=== PATIENT | male | born 1995 | race Caucasian/White ===

== ENCOUNTER 2017-10-16 16:27 | Emergency (ER) | payer OTHER ==
--- NOTE | 2017-10-16 18:11 | ED ---
Abdominal Pain/Male - HPI Summary HPI Summary: 21-year-old male presents to ED with complaints of watery diarrhea that has been ongoing for the past 2 days. States the diarrhea became more frequent today and has gone about 8-9 episodes. States yesterday he had 2 episodes that were more of loose stool. Describes diarrhea to be watery. Denies fever chills , chest pain and trouble breathing. Has not taken any medication for the symptoms. States she has diffuse crampy abdominal pain shortly before he has to use the bathroom. Denies any blood. Decreased urinary frequency. Denies nausea vomiting. States he when he drinks water he uses the bathroom shortly after. Has been able to keep down pretzels. Denies any past medical history. No recent travel. Did eat oysters on Sunday night. Also ate at the [employer] at school. Denies anybody having similar symptoms. No recent antibiotic use. Also complains of a headache. Denies lightheadedness or weakness. No other complaints. - History of Current Complaint Chief Complaint: EDAbdPain Stated Complaint: DIARRHEA Time Seen by Provider: 10/16/17 17:56 Hx Obtained From: Patient Onset/Duration: Sudden Onset, Lasting Days - 1-2 Timing: Intermittent Severity Initially: Mild Severity Currently: Mild Pain Intensity: 4 Pain Scale Used: 0-10 Numeric Location: Diffuse Radiates: No Aggravating Factor(s): Food - drinking water exacerbates using the bathroom Alleviating Factor(s): Nothing Associated Signs And Symptoms: Positive: Diarrhea. Negative: Fever, Constipation, Blood in Stool, Urinary Symptoms, Vomiting - Allergies/Home Medications Allergies/Adverse Reactions: Allergies Allergy/AdvReac Type Severity Reaction Status Date / Time No Known Allergies Allergy Verified 10/16/17 16:29 PMH/Surg Hx/FS Hx/Imm Hx Endocrine/Hematology History: Denies: Hx Anticoagulant Therapy, Hx Diabetes Cardiovascular History: Denies: Hx Hypertension Respiratory History: Denies: Hx Asthma - Surgical History Surgery Procedure, Year, and Place: none - Immunization History Immunizations Up to Date: Yes Infectious Disease History: No Infectious Disease History: Denies: Hx Clostridium Difficile, Hx Hepatitis, Hx Human Immunodeficiency Virus (HIV), Hx of Known/Suspected MRSA, Hx Shingles, Hx Tuberculosis, Hx Known/ Suspected VRE, Hx Known/Suspected VRSA, History Other Infectious Disease, Traveled Outside the in Last 30 Days - Family History Known Family History: Positive: None - Social History Alcohol Use: None Substance Use Type: Reports: None Smoking Status (MU): Never Smoked Tobacco Review of Systems Constitutional: Negative Cardiovascular: Negative Respiratory: Negative Positive: Abdominal Pain, Diarrhea Positive: Headache All Other Systems Reviewed And Are Negative: Yes Physical Exam Triage Information Reviewed: Yes Vital Signs On Initial Exam: Initial Vitals Temp Pulse Resp BP Pulse Ox 98.3 F 91 16 137/78 95 10/16/17 16:29 10/16/17 16:29 10/16/17 16:29 10/16/17 16:29 10/16/17 16:29 Vital Signs Reviewed: Yes Appearance: Positive: Well-Appearing, No Pain Distress, Well-Nourished Skin: Positive: Warm, Skin Color Reflects Adequate Perfusion, Dry. Negative: Cold, Jaundiced, Pale Head/Face: Positive: Normal Head/Face Inspection Eyes: Positive: Conjunctiva Clear ENT: Positive: Pharynx normal Neck: Positive: Supple, Nontender Respiratory/Lung Sounds: Positive: Clear to Auscultation, Breath Sounds Present. Negative: Rales, Rhonchi, Wheezes Cardiovascular: Positive: Normal, RRR, Pulses are Symmetrical in both Upper and Lower Extremities. Negative: Murmur, Rub Abdomen Description: Positive: Nontender, No Organomegaly, Soft. Negative: Bruit, CVA Tenderness (R), CVA Tenderness (L), Distended, Guarding, McBurney's Point Tenderness, Peritoneal Signs Bowel Sounds: Positive: Present, Hyperactive Musculoskeletal: Positive: Normal Neurological: Positive: Normal, Sensory/Motor Intact, Alert, Oriented to Person Place, Time Diagnostics - Vital Signs Vital Signs Temp Pulse Resp BP Pulse Ox 10/16/17 16:29 98.3 F 91 16 137/78 95 - Laboratory Result Diagrams: 10/16/17 18:10 10/16/17 18:10 Lab Statement: Any lab studies that have been ordered have been reviewed, and results considered in the medical decision making process. Re-Evaluation - Re-Evaluation First Eval Re-Evaluation Time: 20:20 Change: Worse - patient had an episode of vomiting, updated on labs and stool culture results. given zofran and another liter of fluids. waiting on influenza culture. Second Eval Re-Evaluation Time: 21:50 Change: Improved - feeling better, recieved zofran and 2L of normal saline. influenza negative, updated on labs and results. will wait for remaining culture results. ready to be d/c. Abdominal Pain Fem Course/Dx - Course Course Of Treatment: Labs and stool culture obtained. Labs unremarkable. Stool culture reveals negative C. difficile positive fecal lactoferrin. Negative stool occult blood. Given 2 L normal saline. Urinalysis obtained and unremarkable. Normal vitals. Normal physical exam. flu swab obtained and negative. given zofran for nausea and episode of vomiting. Patient improves during ED stay vitals still stable. Updated on labs and stool culture results. Pending remaining shiga toxin and Escherichia coli culture results. Sent home with Zofran, fluid maintenance, BRAT diet, probiotics and rest. No other concerns at this time. All questions answered. Patient is aware of worsening signs and symptoms to watch out for. Follow-up with PCP in 2 days - Diagnoses Differential Diagnosis/HQI/PQRI: Other - diarrhea, nausea/vomiting, gastroenteritis, food poisoning Provider Diagnoses: Gastroenteritis Discharge - Sign-Out/Discharge Documenting (check all that apply): Discharge - Discharge Plan Condition: Stable Disposition: HOME Prescriptions: Ondansetron ODT TAB* [Zofran 4 MG Odt TAB*] 4 mg PO Q6H PRN #6 tab.odt PRN Reason: Nausea Patient Education Materials: Gastroenteritis (ED), Acute Nausea and Vomiting ( ED) Referrals: [facility] - Wes DAVIS [Primary Care Provider] - Additional Instructions: Increase fluid intake, and electrolytes recommend Gatorade or Pedialyte. Probiotic daily and hungarian yogurt. Recommended diet of bananas, rice, applesauce and toast to help with diarrhea. Take prescribed medication as needed for nausea. Cultures will be obtained in the next few days if any treatment is needed you will be called. Any new or worsening symptoms. Return to ED immediately, as discussed. Follow-up with PCP in 2 days. - Billing Disposition and Condition Condition: STABLE Disposition: HOME
[2017-10-16 18:27] LABS: ABS Basophils 0 10^3/ul (0-0.2); ABS Eosinophils 0 10^3/ul (0-0.6); ABS Lymphocytes 0.4 10^3/ul (1.0-4.8); ABS Monocytes 0.7 10^3/ul (0-0.8); ABS Neutrophils 8.2 10^3/ul (1.5-7.7); ABS Nucleated RBC 0 10^3/ul; Eosinophil % 0.5 % (0-6); Hematocrit 48 % (42-52); Hemoglobin 16.1 g/dl (14.0-18.0); Lymphocyte % 4.3 % (25-47); Mean Corpuscular HGB Conc 34 g/dl (31-36); Mean Corpuscular Hemoglobin 30 pg (27-31); Mean Corpuscular Volume 88 fL (80-94); Mean Platelet Volume 8 um3 (7.4-10.4); Nucleated Red Blood Cells % 0; Platelet Count 195 10^3/ul (150-450); Red Blood Count 5.43 10^6/ul (4.0-5.4); Red Cell Distribution Width 13 % (10.5-15); White Blood Count 9.4 10^3/ul (3.5-10.8)
[2017-10-16] MEDS ORDERED: NS 0.9% 1000 ML* 1,000 ML IV ONE ×2 (18:39→20:19)
[2017-10-16 18:44] LABS: EGFR Non-African American 80.3 (>60)
[2017-10-16 19:06] LABS: Urine Appearance Cloudy; Urine Blood Negative (Negative); Urine Color Amber; Urine Ketones Negative (Negative); Urine Protein 1+(30 mg/dL) (Negative); Urine Specific Gravity 1.028 (1.010-1.030); Urine Urobilinogen Negative (Negative)
[2017-10-16] MEDS ORDERED: Ondansetron INJ* 2 MG/ML VIAL IV ONE (20:19)
[2017-10-16] MEDS ORDERED: Ondansetron INJ* 2 MG/ML VIAL ONE (20:20)
[2017-10-16] MEDS ORDERED: Ondansetron ODT TAB* 4 MG PO ONE (21:44)
[2017-10-16] MEDS ORDERED: Loperamide CAP* 2 MG PO ONE (21:45)
[2017-10-16 22:19] VITALS: BP 130/74
== END 2017-10-16 22:18 | disposition home or self-care (01) ==
LOC: ED 16:27
DX: K52.9 Noninfective gastroenteritis and colitis, unspecified (principal); R51 Headache
CPT/HCPCS: 36415; 80053; 81003; 81015; 82272; 83605; 83630; 83690; 83735; 85025; 86140; 87045; 87046; 87077; 87493; 87502; 87899; 96361; 96374; 99285; A9270-GY; J2405